=== PATIENT | female | born 2000 | race Native Hawaiian/Other Pacific Islander ===

== ENCOUNTER 2019-10-15 21:39 | Emergency (ER) | payer OTHER ==
[~2019-10-15] VITALS: Ht 157.5 cm; Wt 90.7 kg
[2019-10-15] MEDS ORDERED: CLOP75TA2 PO (21:59)
[2019-10-15] MEDS ORDERED: ASPIRIN REGULA325 MG PO (22:00)
[2019-10-15 23:20] VITALS: BP 12118/8; TEMP 98.3
== END 2019-10-15 23:20 | disposition home or self-care (01) ==
LOC: ED 21:39
DX: Z33.1 Pregnant state, incidental (principal); R10.84 Generalized abdominal pain
CPT/HCPCS: 81000; 81025; 99283